=== PATIENT | female | born 1955 | race Caucasian/White ===

== ENCOUNTER → 2016-06-28 | Outpatient (CLI) | payer BC ==
[~2016-06-28] MED LIST: IOHEXOL 350 MG/ML 100ML VIAL. IV ONE
--- NOTE | 2016-06-28 09:20 | RAD ---
EXAM: CTA chest and abdomen with and without contrast. HISTORY: Family history of abdominal aortic aneurysm. TECHNIQUE: CTA of the chest and abdomen was performed before and after the intravenous administration of 90 mL Omnipaque 350. Three-dimensional reconstructions were also performed. COMPARISON: 07/24/2012. FINDINGS: Angiographic findings: The aortic arch has a typical branching pattern. There are moderate atherosclerotic calcifications at the origin of the left subclavian artery and brachiocephalic artery without stenosis. The thoracic aorta is normal in caliber measuring 2.9 cm in its ascending portion, 2.6 cm at the arch, and 2.4 cm in its descending portion. The pulmonary artery is not enlarged. No pulmonary emboli are seen There is no abdominal aortic aneurysm. There are moderate atherosclerotic calcifications of the distal infrarenal abdominal aorta. Maximum diameter is 2.0 cm. The proximal iliac systems are moderately disease without stenosis or aneurysm. The celiac axis, superior mesenteric artery and inferior mesenteric artery are patent without stenosis. The renal arteries are single bilaterally and demonstrate no stenosis. Note is made of a circumaortic left renal vein. The inferior vena cava and portal vein are unremarkable. Nonangiographic findings: Bone windows reveal no suspicious lesions. Calcified mediastinal lymph nodes are likely secondary to old granulomatous disease. There are no pathologically enlarged mediastinal or axillary lymph nodes. There is no pleural or pericardial effusion. The heart is not enlarged. A groundglass density nodule in the right upper lobe on image 27 measures 6 mm this has been stable since 2012. Smaller groundglass nodules in the right apex are also stable. There is a calcified granuloma in the right middle lobe. A sub-4 mm nodule in the right upper lobe on image 47 is stable and benign. A cyst in the right hepatic lobe measures 18 mm. The distal pancreatic duct is mildly dilated at 5 mm. The common duct is at the upper limits of normal caliber at 7 mm. No pancreatic parenchymal lesion is seen. The spleen, adrenal glands and right kidney are unremarkable. There are small cysts or cortical scars in the left kidney. There are no pathologically enlarged lymph nodes. There is no evidence of obstruction. Stool throughout the colon is consistent with constipation. IMPRESSION: 1. No abdominal aortic aneurysm. Moderate atherosclerotic calcifications. No included hemodynamically significant stenosis. 2. Small groundglass density nodules in the right upper lobe measure up to 6 mm. These appear stable since 07/24/2012 and are likely benign. Another follow-up could be considered in one year if there are strong risk factors. 3. The distal pancreatic duct is mildly dilated. Correlate for prior pancreatitis. No obstructing lesion is appreciable. One or more of the following individualized dose reduction techniques were utilized for this examination: 1. Automated exposure control. 2. Adjustment of the mA and/or kV according to patient size. 3. Use of iterative reconstruction technique.
== END | disposition home or self-care (01) ==
LOC: CT 07:53
PROVIDERS: ATTEND Family Medicine
DX: Z13.6 Encounter for screening for cardiovascular disorders (principal); I25.10 Atherosclerotic heart disease of native coronary artery without angina pectoris; J98.4 Other disorders of lung
CPT/HCPCS: 71275; 74175; Q9967